=== PATIENT | male | born 1985 | race Two or more races ===

== ENCOUNTER 2017-01-06 18:12 | Emergency (ER) | payer OTHER ==
[~2017-01-06] VITALS: Ht 180.3 cm; Wt 70.3 kg
[2017-01-06 18:44] VITALS: BP 141/76
== END 2017-01-06 18:46 | disposition home or self-care (01) ==
LOC: ER 18:18
DX: H92.02 Otalgia, left ear (principal); R42 Dizziness and giddiness; J45.909 Unspecified asthma, uncomplicated
CPT/HCPCS: 99283; A4606; Z7610